=== PATIENT | female | born 1985 | race Caucasian/White ===

== ENCOUNTER 2024-07-03 21:08 | Inpatient (IN) | payer OTHER, SELFPAY ==
[2024-07-03] VITALS (7 sets, daily range): BP systolic 155–196; BP diastolic 105–135; BMI 13.2; BMI 12.7
--- NOTE | 2024-07-03 18:19 | ED.GENMED ---
History of Present Illness
<IFRAH De La Cruz - Last Filed: 07/03/24 19:52>
General
Chief Complaint: Dizziness
Source: patient
Exam Limitations: none
Time Seen by Provider: 07/03/24 17:57
History of Present Illness
History of Present Illness:
This is a 39 year old female that comes in with c/o dizziness and frequent falls. states that two weeks ago she had a fall with her dogs. States that since then she has been dizzy and having trouble with her balance. States that she has been
falling a lot and she did move home with Parents due to the falls. States that she also started with diarrhea today and she has lost weight. Today she went to the PCP and was sent in as he was concerned about her electrolytes. States that her
appetite has been decreased. States that she has abd cramping, nausea, and had chills. Denies any fever, chest pain, SOB, vomiting, headache, dizziness, urinary burning.
Past History
<IFRAH De La Cruz - Last Filed: 07/03/24 19:52>
Past History
ED Past Medical History: Psychiatric (Anxiety, eating disorder but patient will not admit to) and Other (raynaud's Syndrome, ADHD, )
ED Past Surgical History: Orthopedic (Jaw surgery, )
Social History
Tobacco: Non-smoker
Alcohol: None
Personal: Single
Living: with family (Parents)
Review of Systems
<IFRAH De La Cruz - Last Filed: 07/03/24 19:52>
Review of Systems
All Other Systems: ROS reviewed and negative except as documented in HPI and ROS
Constitutional: Reports chills; Denies fever
EENT: Reports no symptoms
Respiratory: Reports no symptoms; Denies cough or trouble breathing
Cardiac: Reports no symptoms; Denies chest pain
ABD/GI: Reports abdominal pain (cramping), nausea and diarrhea; Denies vomiting
: Reports no symptoms; Denies dysuria, frequency or urgency
Musculoskeletal: Reports no symptoms
Skin: Reports no symptoms
Neurological: Reports dizzy; Denies headache
Psychiatric: Reports no symptoms
Phy Exam
<IFRAH De La Cruz - Last Filed: 07/03/24 19:52>
General Physical Exam
General Presentation: no apparent distress
General age: appears stated age
General Skin: warm and dry
General Habitus: cachetic and frail
General Mental: alert
General Hydration: appears well hydrated
ENT Exam
ENT Exam: TM's normal, pharynx normal and neck supple
Eye Exam
Eye Exam: EOMI
Cardiovascular Exam
Cardiovascular Exam: regular rate/rhythm and normal peripheral pulses
Pulmonary Exam
Pulmonary Exam: no respiratory distress, no rales, chest non tender, no crackles, no rhonchi, no wheezing, no cough and decreased breath sounds (throughtout)
Gastrointestinal Exam
Gastrointestinal Exam: normal bowel sounds, non tender, soft, no organomegaly, no pulsatile mass and non distended
Musculoskeletal Exam
Musculoskeletal Exam: edema (+2 pitting edema of the lower legs)
Skin Exam
Skin Exam: normal color, warm/dry, no petechia, mottled (Finger due to Raynaud's) and other (Contusion of the right forehead, left upper arm, healing wounds bilateral knees. both hand and feet skin peeling )
Psychiatric Exam
Psychiatric Exam: normal mood/affect
Course
<IFRAH De La Cruz - Last Filed: 07/03/24 19:52>
Orders/Labs/Results
Orders:
Orders
07/03/24 18:18
CT Head W/o Iv Contrast Urgent
Comment:
Reason For Exam: dizziness, frequent falls
07/03/24 18:19
0.9% Sodium Chloride 1000 ml [Nss] 1,000 ml IV BOLUS
07/03/24 18:[address] Non Medication Order As Directed
Physician Order: rectal temp
07/03/24 18:34
Electrocardiogram (*1) Urgent
Reason for Study: Abdominal Pain
EKG- Treatment ONCE
07/03/24 18:38
Complete Blood Count/With Diff Urgent
Comprehensive Metabolic Panel Urgent
Magnesium Urgent
07/03/24 18:[address] Non Medication Order As Directed
Physician Order: Bear hugger
07/03/24 19:07
Labetalol HCl [Trandate] 10 mg IV NOW STA
Abnormal Lab Results
07/03/24
18:38
RBC 3.75 L 10^6/uL
(4.20-5.40)
Hct 35.0 L %
(37.0-47.0)
MCH 33.3 H pg
(27.0-31.0)
MPV 10.7 H fL
(7.4-10.4)
Absolute Lymphs (auto) 0.5 L 10^3/uL
(1.2-3.4)
Neutrophils % 84.0 H %
(42.2-75.2)
Lymphocytes % 8.1 L %
(20.5-51.1)
Chloride 92 L mmol/L
(98-107)
Carbon Dioxide 34 H mmol/L
(22-30)
BUN 49 H mg/dl
(7-17)
Glucose 101 H mg/dl
(70-99)
AST 216 H U/L
(14-36)
ALT 175 H U/L
(0-35)
Alkaline Phosphatase 142 H U/L
(38-126)
07/03/24 18:38
07/03/24 18:38
Chloride low, carbon dioxide elevation. Dehydration. Glucose nonfasting. AST/ALT elevation. Alk phos elevation.
Vital Signs
Initial and Last Documented VS:
Initial Vital Signs
Pulse Resp BP Pulse Ox
74 16 194/124 100
07/03/24 17:46 07/03/24 17:46 07/03/24 17:46 07/03/24 17:46
Last Documented Vital Signs
Temp Pulse Resp BP Pulse Ox
93.8 F L 69 13 179/127 100
07/03/24 19:48 07/03/24 19:09 07/03/24 19:00 07/03/24 19:09 07/03/24 19:00
<Roger Tee, DO - Last Filed: 07/03/24 18:37>
Orders/Labs/Results
Orders:
Orders
07/03/24 18:18
CT Head W/o Iv Contrast Urgent
Comment:
Reason For Exam: dizziness, frequent falls
07/03/24 18:19
0.9% Sodium Chloride 1000 ml [Nss] 1,000 ml IV BOLUS
07/03/24 18:[address] Non Medication Order As Directed
Physician Order: rectal temp
07/03/24 18:34
Electrocardiogram (*1) Urgent
Reason for Study: Abdominal Pain
EKG- Treatment ONCE
07/03/24 18:38
Complete Blood Count/With Diff Urgent
Comprehensive Metabolic Panel Urgent
Magnesium Urgent
07/03/24 18:[address] Non Medication Order As Directed
Physician Order: Bear hugger
07/03/24 19:07
Labetalol HCl [Trandate] 10 mg IV NOW STA
Abnormal Lab Results
07/03/24
18:38
RBC 3.75 L 10^6/uL
(4.20-5.40)
Hct 35.0 L %
(37.0-47.0)
MCH 33.3 H pg
(27.0-31.0)
MPV 10.7 H fL
(7.4-10.4)
Absolute Lymphs (auto) 0.5 L 10^3/uL
(1.2-3.4)
Neutrophils % 84.0 H %
(42.2-75.2)
Lymphocytes % 8.1 L %
(20.5-51.1)
Chloride 92 L mmol/L
(98-107)
Carbon Dioxide 34 H mmol/L
(22-30)
BUN 49 H mg/dl
(7-17)
Glucose 101 H mg/dl
(70-99)
AST 216 H U/L
(14-36)
ALT 175 H U/L
(0-35)
Alkaline Phosphatase 142 H U/L
(38-126)
07/03/24 18:38
07/03/24 18:38
Vital Signs
Initial and Last Documented VS:
Initial Vital Signs
Pulse Resp BP Pulse Ox
74 16 194/124 100
07/03/24 17:46 07/03/24 17:46 07/03/24 17:46 07/03/24 17:46
Last Documented Vital Signs
Temp Pulse Resp BP Pulse Ox
93.8 F L 69 13 179/127 100
07/03/24 19:48 07/03/24 19:09 07/03/24 19:00 07/03/24 19:09 07/03/24 19:00
Marquislt;IFRAH De La Cruz - Last Filed: 07/03/24 19:52>
MDM/Problems Addressed
Differential Diagnosis Includes:
Electrolyte imbalance, failure to thrive
MDM/Problems Addressed:
This is a 39 year old female that comes in with c/o dizziness. States that this started 2 weeks ago after a fall with her dogs. States that she has been having trouble with her balance since that time.
will get labs, CT head, give IV fluids.
Into see parents. Mom states that she has hospitalized about a year ago as her electrolytes were abnormal. States that she does have an eating disorder. Expained that she will be admitted. Temp at that this time 93.[address] the bear
Hugger.
Chronic conditions affecting care:
Eating disorder,
Acute Exacerbation and/or Progression of Chronic Illness:
eating disorder,
<IFRAH De La Cruz - Last Filed: 07/03/24 19:52>
*Radiology
Radiology exam reviewed: radiology read reviewed (CT head-No CT evidence for acute intracranial hemorrhage or transcortical infarct. Mild diffuse cerebral and cerebellar volume loss. Diffuse anasarca)
*Pulse Oximetry
Patient hypoxic: no
*EKG
Interpreted by ED Provider?: Yes
Heart Rate: 56
Rate: bradycardiac
Rhythm: sinus
Lima: normal axis
Interval: long QT
QRS Pattern: normal QRS
Ischemia: no ischemia (Checked by Dr. Tee)
*Critical Care Note
Total Time (30-74mins, 75-104mins- exclusive of procedures): Not Applicable
ED Attending Note
<IFRAH De La Cruz - Last Filed: 07/03/24 19:52>
-
Portions of this chart may have been created with voice recognition software.� Occasional wrong word or��sound alike� substitutions may have occurred due to the inherent limitations of voice recognition software.
<Roger Tee DO - Last Filed: 07/03/24 18:37>
ED Attending Note
Patient seen and examined by attending physician: Yes
I performed the substantive portion of visit, reviewed & personally made and approve the management plan that is documented in note by myself or STEPHANIE.: Yes
ED Attending Note:
I have seen and evaluated the patient with a [id number] encounter. I have spoken to the advance practicer provider and involved in the medical history, the physical exam, medical decision making.
Evaluation and management service: agree unless noted differently below.
Results interpretation: agree unless noted differently below.
Focused HPI: 39-year-old female presenting for evaluation of weakness, fatigue and diarrhea. Patient states this has progressed over the past day or so.
Physical exam: Extremely cachectic, frail, weak.
Medical Decision Making: Patient has evidence to suspect eating disorder. She likely has significant amount of Electrolyte abnormalities. Will give fluids and obtain blood work and ultimately
Discharge Plan
Departure
Patient Disposition: Admit
Date of Disposition: 07/03/24
Time of Disposition: 19:28
Admit to: IMU
Presentation/result/management discussed w/ accepting MD/DO: Hospitalist
Patient with high blood pressure during this ER visit?: Yes
Condition: Fair
Covid-19: Not Applicable
Discharge Problem:
Hypothermia, Elevated liver enzymes, Dizziness, Frequent falls, Acute Hypertension
Prescriptions:
No Action
Theragen Tablet
1 tab PO DAILY
calcium carbonate [Tums] 200 mg calcium (500 mg) Tablet,Chewable
400 mg PO DAILYPRN PRN (Reason: take with advil)
losartan 25 mg Tablet
25 mg PO HS
ibuprofen [Advil] 200 mg Tablet
400 mg PO Q8HPRN PRN (Reason: mild pain)
furosemide 20 mg Tablet
20 mg PO DAILY
dextroamphetamine-amphetamine [Adderall XR] 30 mg Capsule,Extended Release 24hr
30 mg PO QPM
diazepam 5 mg Tablet
5 mg PO TID
fish oil-dha-epa 1,200-144-216 mg Capsule
1 cap PO QID
dextroamphetamine-amphetamine [Mydayis] 50 mg Capsule, Er Triphasic 24 Hr
50 mg PO DAILY
turmeric 400 mg Capsule
400 mg PO QPM
Interventions
Interventions:
*Risk Screen - Suicide Last Done: 07/03/24 17:46
*Neglect/Abuse Screening Last Done: 07/03/24 17:46
Discharge Date and Time
Print Language: GAMBIAN
[2024-07-03 18:56] LABS: % Basophils 0.3 % (0-2); % Immature Granulocytes 0.3 % (0-0.5); % Lymphocytes 8.1 % (20.5-51.1); % Monocytes 4.3 % (1.7-9.3); Absolute Eosinophils 0.2 10^3/uL (0-0.7); Absolute Lymphocytes 0.5 10^3/uL (1.2-3.4); Absolute Monocytes 0.3 10^3/uL (0.1-0.6); Absolute Neutrophils 5.3 10^3/uL (1.4-6.5); Hemoglobin 12.5 g/dL (12.0-16.0); Mean Corp Hgb Conc. 35.7 g/dL (33.0-37.0); Mean Corpuscular Hgb 33.3 pg (27.0-31.0); Mean Corpuscular Volume 93.3 fL (81.0-99.0); Mean Platelet Volume 10.7 fL (7.4-10.4); Nucleated Red Blood Cells % 0 %; Platelet Count 130 10^3/uL (130-400); Red Blood Cell Count 3.75 10^6/uL (4.20-5.40); White Blood Cell Count 6.3 10^3/uL (4.8-10.8)
[2024-07-03 19:04] LABS: ALT (SGPT) 175 U/L (0-35); AST (SGOT) 216 U/L (14-36); Albumin 4.5 g/dl (3.5-5.0); Alkaline Phosphatase 142 U/L (38-126); Blood Urea Nitrogen 49 mg/dl (7-17); Calcium 9.5 mg/dl (8.4-10.2); Carbon Dioxide 34 mmol/L (22-30); Chloride 92 mmol/L (98-107); Glucose 101 mg/dl (70-99); Magnesium 1.9 mg/dl (1.6-2.3); Potassium 4.1 mmol/L (3.5-5.1); Sodium 135 mmol/L (135-145); Total Bilirubin 0.6 mg/dl (0.2-1.3); Total Protein 6.7 g/dl (6.3-8.2); eGFR > 60.00
[2024-07-03] MEDS: NSS 1000 IV (19:08)
[2024-07-03] MEDS: TRANDATE 10 MG IV (19:09)
--- NOTE | 2024-07-03 20:51 | HPS.HSE ---
Family Physician
-
Family Physician: Mary Zhang
Chief Complaint
-
Dizziness and frequent falls.
History of Present Illness
39-year-old female who has a past medical history of ADHD, anxiety brought to family after PMD visit for evaluation of frequent falls.
According to family who provided large percent of the history patient has a history of eating disorder. She apparently had bulimic symptoms for years ago but currently severely anorexic. She has been living with family for several years now and
she was last optimized with severe malnutrition about a year ago at [facility]. At the time she had no extremity edema that was attributed to able to malnutrition. She had no known liver disease. She denies any alcohol use. Patient
herself reports that she is having surgery was on liquid diet for a while but now is on solid diet. She follows at outpatient rehab for ADHD. Is not clear that she has been followed for severe eating disorder. Patient reports chronic low
temperatures at baseline. He does not know whether she has been evaluated for hypothyroid. She denies any urinary symptoms abdominal pain nausea or vomiting. She denies current diarrhea. Family notes that stools. They deny constipation. They
denied any rash. Patient reports dizziness worse with standing. She has ambulatory difficulties secondary to weakness. Seen by PMD who sent her to ED.
In the emergency department the patient was hypothermic to 93.8, blood pressure was measured at 160/100 and she was satting 100% on room air. CBC was unremarkable. Chemistries were only notable for a bicarb of 34. LFTs showed normal bilirubin
with some mild transaminitis.
Medical History
Past Medical History
Past Medical History: Reports HTN and Psychiatric (Anxiety)
Additional Past Medical History:
ADHD
Eating D/O
Past Surgical History: Reports Other
Additional Past Surgical History:
General surgery
Social History
Tobacco: Non-smoker
Alcohol: None
Drug: None
Personal: Single
Living: With Family
Employment: Not Employed
Family History
Family History: Not pertinent
Allergies / Home Medications
Allergies reflects when Allergies were last updated in [facility].
Home Medications with original date entered in [facility]
Allergy/Medication List:
Allergies
Allergy/AdvReac Type Severity Reaction Status Date / Time
acetaminophen [From Tylenol] Allergy Intermediate Vomiting Verified 07/03/24 17:46
aspirin Allergy Intermediate Vomiting Verified 07/03/24 17:46
codeine Allergy Intermediate Unknown Verified 07/03/24 17:46
black pepper Allergy Mild Swelling Verified 07/03/24 17:45
Penicillins Allergy Mild Hives Verified 07/03/24 17:45
Home Medications
calcium carbonate (Tums) 400 mg PO DAILYPRN PRN take with advil 07/03/24
dextroamphetamine-amphetamine ER 30 mg 24hr capsule,extend release (Adderall XR) 30 mg PO QPM 07/03/24
dextroamphetamine-amphetamine ER 50 mg capsule,3 bead,ext release 24hr (Mydayis) 50 mg PO DAILY 07/03/24
diazepam 5 mg tablet 5 mg PO TID 07/03/24
fish oil-dha-epa 1,200 mg-144 mg-216 mg capsule 1 cap PO QID 07/03/24
furosemide 20 mg tablet 20 mg PO DAILY 07/03/24
ibuprofen 200 mg tablet (Advil) 400 mg PO Q8HPRN PRN mild pain 07/03/24
losartan 25 mg tablet 25 mg PO HS 07/03/24
therapeutic multivitamin 1 tab PO DAILY 07/03/24
turmeric 400 mg capsule 400 mg PO QPM 07/03/24
Review of Systems
-
History Source: Patient
Constitutional: Reports Weight Loss and Fatigue
EENT: Reports No Symptoms
Respiratory: Reports No Symptoms
Cardiac: Reports No Symptoms
Abdomen/GI: Reports No Symptoms
: Reports No Symptoms
Musculoskeletal: Reports No Symptoms
Skin: Reports No Symptoms
Neurological: Reports Weakness
Endocrine: Reports Temp Intolerance (hypothermia)
Hematologic/Lymphatic: Reports No Symptoms
Psych: Reports No Symptoms
Physical Exam
Vital Signs
Vital Signs
Temp Pulse Resp BP Pulse Ox
93.8 F L 67 21 164/114 100
07/03/24 19:48 07/03/24 19:45 07/03/24 19:45 07/03/24 19:30 07/03/24 19:30
Physical Exam
General: Cachectic
HEENT: NormoCephalic, Anicteric, PERRLA and Neck Nontender
Respiratory: Clear
Cardiac: S1/S2 and Bradycardia
Breast: Deferred by me
GI: Soft, Non Tender and Normal Bowel Sounds
Rectal: Deferred by Provider
Genito-urinary: Deferred by me
Musculoskeletal: No Clubbing, No Cyanosis, Edema, Left Lower Extremity and Edema, Right Lower Extremity
Skin: Warm
Neuro: AO x 3
Hematologic/Lymphatic: No Lymphadenopathy
Psych: Calm
Laboratory Results
-
07/03/24 18:38
07/03/24 18:38
Laboratory Results
Total Bilirubin 0.6 mg/dl (0.2-1.3) 07/03/24 18:38
AST 216 U/L (14-36) H 07/03/24 18:38
ALT 175 U/L (0-35) H 07/03/24 18:38
Alkaline Phosphatase 142 U/L (38-126) H 07/03/24 18:38
Data Reviewed
-
Lab Data: Labs Reviewed by me
Old Records: Reviewed
Impression/Plan
-
IMPRESSION:
39 y.o with dizziness found to be hypothermic here. No obvious signs of infection. History of eating d/o, underweight with ongoing weight loss
PLAN:
1. Hypothermia - No signs of active infection. Lungs clear. No abdominal symptoms. No urinary symptoms. Head Ct negative.
- admit to med/surg
- warming measures
- check cortisol and tsh
- u/a
- covid
-
2. Malnutrition - She is underweight, elevated bicarb suggestive of GI losses and contraction alkalosis. Labs otherwise unremarkable. History of malnutrition/anorexia. She is severely ill from this now
- despite BP will start d5 thiamine/folate/mvi
- check levels of ca, mag, phos, b12, folate, pre-albumin to assess nutritional status
- will need behavioral consult
- orthostatic vs
3. Hypertension
- continue losartan for now
- holding lasix (used for edema, no h/o CHF)
4. ADHD
- continue adderal and mydayis per home regimen
- reduced diazepam to 5 daily and prn, monitor for withdrawal
DVT PPX - lovenox 30 sq
Code status - full code
[2024-07-03 21:44] LABS: COVID-19 Antigen Negative (Negative)
[2024-07-03 21:55] LABS: TSH Reflex To Free T4 6.33 uIU/ml (0.47-4.68)
[2024-07-03] MEDS: COZAAR 25 MG PO (23:43)
[2024-07-03] MEDS: MULTIVITAMIN 1011.2 MG IV ×2 (23:48)
[2024-07-03] MEDS: MULTIVITAMIN 1011.2 ML IV (23:48)
[2024-07-03] MEDS: VALIUM 2 MG PO (23:48)
[2024-07-04 06:30] VITALS: BP 146/90
[2024-07-04 06:43] LABS: INR 0.98; PT 13.5 Sec (11.4-14.6)
[2024-07-04 06:44] LABS: APTT 31.8 Sec (23.4-35.0)
[2024-07-04 07:00] LABS: NT-proBNP 1100 pg/ml
[2024-07-04 07:24] LABS: Blood Urea Nitrogen 31 mg/dl (7-17); Calcium 8.4 mg/dl (8.4-10.2); Carbon Dioxide 33 mmol/L (22-30); Chloride 97 mmol/L (98-107); Creatine Phosphokinase 270 U/L (30-135); Estimated Creatinine Clearance 68 ml/min; Glucose 80 mg/dl (70-99); HDL Cholesterol 100 mg/dl; Iron 83 ug/dl (37-170); LDL Cholesterol, Calculated 24 mg/dl; Lipase 773 U/L (23-300); Magnesium 1.7 mg/dl (1.6-2.3); Phosphorus 1.6 mg/dl (2.5-4.5); Potassium 3.5 mmol/L (3.5-5.1); Sodium 135 mmol/L (135-145); Total Cholesterol 131 mg/dl (50-199); Triglyceride 38 mg/dl (10-149); Very Low Density Lipoprotein 7 mg/dl (0-30); eGFR > 60.00
[2024-07-04 07:25] LABS: Hematocrit 27.3 % (37.0-47.0); Hemoglobin 9.7 g/dL (12.0-16.0); Mean Corp Hgb Conc. 35.5 g/dL (33.0-37.0); Mean Corpuscular Hgb 33.7 pg (27.0-31.0); Mean Corpuscular Volume 94.8 fL (81.0-99.0); Mean Platelet Volume 10.4 fL (7.4-10.4); Platelet Count 101 10^3/uL (130-400); Red Blood Cell Count 2.88 10^6/uL (4.20-5.40); Red Cell Dist. Width 13.2 % (11.5-14.5); White Blood Cell Count 3.4 10^3/uL (4.8-10.8)
--- NOTE | 2024-07-04 07:28 | PTCARENOTE ---
Pt w/ bloody nose w/ a few clots. Pressure held and pt's head forward. Cold compress held to nose. Pt stated she usually gets nose bleeds this time of year but 'this is the worst one' shes had. CNC MILLING MACHINIST notified, instructed to cont to monitor. Pt placed
gauze in nose and is holding pressure. Plan of care ongoing.
[2024-07-04 07:30] LABS: Urine Albumin Negative (Neg - Trace); Urine Bilirubin Negative (Negative); Urine Character Clear (Clear); Urine Color Yellow; Urine Glucose Negative (Negative); Urine Ketone Negative (Negative); Urine Leukocyte Negative (Negative); Urine Nitrite Negative (Negative); Urine Occult Blood Negative (Negative); Urine Urobilinogen Negative (Neg - 1+)
[2024-07-04 07:34] LABS: Percent Saturation 31 % (20-50); Total Iron Binding Capacity 265 ug/dl (265-497)
[2024-07-04 07:46] LABS: Amphetamines Positive (Negative); Barbiturates Negative (Negative); Benzodiazepines Positive (Negative); Buprenorphine Negative (Negative); Cocaine Negative (Negative); Marijuana Negative (Negative); Methadone Negative (Negative); Methamphetamines Negative (Negative); Opiates Negative (Negative); Phencyclidine Negative (Negative); Tricyclic Antidepressants Negative (Negative)
[2024-07-04 07:56] LABS: Cortisol, Random 26.2 ug/dl
[2024-07-04 08:01] LABS: Fentanyl, Urine Negative (Negative)
[2024-07-04 08:14] LABS: Vitamin B12 > 1000 pg/ml (239-931)
[2024-07-04] MEDS: THERAGRAN 1 TABLET PO (08:21)
--- NOTE | 2024-07-04 10:12 | W.PN.HOSP.TC ---
Today's Communication/Plan
-
See plan
Assessment / Plan
Assessment / Plan
Impression:
Presentation with multiple falls and dizziness
Suspect multifactorial ambulatory dysfunction (orthostasis, benzodiazepine effect, overall deconditioning)
Eating disorder, severe with severe cachexia BMI of 12
Hypoalbuminemia secondary to above
Contraction alkalosis
Hypokalemia
Hypomagnesemia
Hypothermia
Pancytopenia
Subclinical hypothyroidism
Peripheral edema with elevated natruretic peptide
Prolonged QTc
Hypertension likely secondary to amphetamine toxicity
Abnormal LFT
Benzodiazepine use disorder.
Stimulant use disorder/amphetamine.
Plan:
Presentation with frequent falls and ambulatory dysfunction.
Multifactorial due to overall deconditioning, suspect benzodiazepines toxicity.
Neurologic exam with no focal findings.
CT scan of the head with no acute abnormalities.
Adjust medication regimen including benzodiazepines.
Physical therapy evaluation.
Severe eating disorder with cachexia and severe protein calorie malnutrition with BMI of 12.
Dehydration with contraction alkalosis.
Hypokalemia, hypomagnesemia all related to the above.
Psychiatry consultation.
Continue IV hydration replete electrolytes.
Nutrition consult
Consider initiation of supplements
Amphetamine and benzodiazepine use disorder.
Patient reports total dose of amphetamine over 80 mg a day, exceeding limits.
Reduce dose Adderall to 15 mg IR twice daily.
Reduce dose of diazepam to 2 mg 3 times daily
Pending psychiatry input and outpatient medication reconciliation
Cardiovascular
Hypotension suspected secondary to amphetamine toxicity
Peripheral edema with elevated natruretic peptide. Could be multifactorial and secondary to amphetamine toxicity as well as severe malnutrition and hypoproteinemia.
Prolonged QTc
Echocardiogram
Replete electrolytes
Follow EKG with QTc monitoring
Cardiac monitoring
Continue losartan
Hold Lasix
Abnormal LFTs with elevated transaminases.
Ultrasound of the abdomen
Avoid hepatotoxic medications
Adjust benzodiazepine dose
Follow LFT.
Hypothermia.
No clinical evidence of infection.
TSH mildly elevated with normal free T4 suggesting subclinical hypothyroidism.
Sinus bradycardia likely baseline
Will monitor closely holding Levothyroid supplementation. Close TFT follow-up as outpatient
Pancytopenia likely related to severe malnutrition
Follow CBC.
Normocytic anemia become apparent with dilution.
Sufficient iron and B12 stores.
Full code
Anticipated Discharge: 24 - 48 hours
Subjective/Interval History
-
Date of Service: July 04, 2024
Objective Data
-
Labs:
Laboratory Results
07/04/24
06:13
WBC 3.4 L
Hgb 9.7 L D
Hct 27.3 L
Plt Count 101 L D
PT 13.5
INR 0.98
APTT 31.8
Sodium 135
Potassium 3.5
Chloride 97 L
Carbon Dioxide 33 H
BUN 31 H
Creatinine 0.5 L
Glucose 80
Calcium 8.4
Vital Signs:
Vital Signs
Temp Pulse Resp BP Pulse Ox
94.0 F L 60 18 146/90 99
07/04/24 08:33 07/04/24 06:30 07/04/24 06:30 07/04/24 06:30 07/04/24 06:30
I&O
07/03/24 07/04/24 07/05/24
06:59 06:59 06:59
Intake Total 480 / 480
Output Total 600 / 600
Balance -120 / -120
Physical Exam
-
General: No Apparent Distress, Appears Chronically Ill and Cachectic
HEENT: Other (Right forehead/periorbital ecchymosis)
Respiratory: Clear to Auscultation
Cardiac: Regular Rhythm and S1/S2; Negative Murmur
Musculoskeletal: Other (Bilateral lower extremity edema)
Neuro: Awake, Alert, Oriented and AO x 3
Psych: Calm and Other (Impaired judgment)
[2024-07-04] MEDS: VALIUM 2 MG PO ×3 (12:51→21:03)
[2024-07-04] MEDS: ADDERALL 15 MG PO (12:51)
[2024-07-04] MEDS: MULTIVITAMIN IV ×3 (13:04)
[2024-07-04 14:18] VITALS: BMI 12.7
--- NOTE | 2024-07-04 14:48 | CM ---
Reviewed chart, met with patient to obtain information for assessment. Patient's mother was at bedside. Patient stated that she lives with her mom and dad in a two story home with one step to enter. She described herself as independent with her
ADLs, personal care, bathing and dressing. Her parents assist with thinner sprayer. They drive patient to her appointments and do all the shopping.
Patient denied any DME at home.
She has never had VN services.
She has a prescription plan and uses [facility] for all of her medications.
Patient's PCP is, Mary Zhang.
Plan: Case management will continue to follow and assist with discharge planning. Home when stable.
[2024-07-04] MEDS: KCL 1012 GRAMS IV (16:15)
[2024-07-04] MEDS: KCL 1012 MEQ IV (16:15)
--- NOTE | 2024-07-04 16:20 | CON.MD ---
Consultation - Medical
-
39 yr old F presenting with multiple falls w/ dizziness in context of severe anorexic eating disorder (BMI 12). Pt with extensive metabolic disturbances due to malnutrition - Hypoalbuminemia, Contraction alkalosis, Hypokalemia, Hypomagnesemia,
Hypothermia, Pancytopenia, elevated LFTs. Also with peripheral edema w/ elevated natriuretic peptide. On admission pt reported being prescribed Mydyais and Adderall for ADHD and it seems pt was resistant to stimulant being discontinued, despite
medical admission being due to sequelae of anorexia.
Pt seen & evaluated at bedside - is notably focused on stimulant medication. Reports that she is completely unable to function without her ADHD medication - says she cannot get any work done without it. Attempted to discuss risks and concerns of
stimulant prescription given significantly low BMI due to anorexia. Also attempted to highlight that pt was quite unwell physically and hospitalized, which is likely much more disruptive to her work than not taking stimulant while being medically
stabilized. Pt was not receptive to this however, and continued to say that the Mydyais and Adderall make her hungry and help her to eat - 'that's the only thing that helps me eat'. Again attempted to discuss with pt how unlikely this was, as well
as to highlight how much of a risk stimulants posed in her condition, but pt was not receptive still.
Was difficult to obtain hx as pt is quite significantly deconditioned and fatigued - increased speech latency, at times trailing off weakly, visible effort to respond due to physical fatigue from the exertion. Also difficult to obtain history
because pt often led back to needing stimulant , regardless of nature of questioned posed.
Pt is often evasive when asked about eating disorder, will not provide detail about history pertaining to this. She does acknowledge that she attends a mental health IOP (not for anorexia) and has a pricing lead there to help with intake, as well as
that says she has been eating 'much better' because when she takes stimulant she is able to create a schedule that allows her to eat more. However difficult to obtain any further information. When asked how it is it possible that stimulant helps
her eat if she is at a BMI of 12, pt blames this on a dog bite over the summer (had to be on liquid diet b/c of pain in face per her report). Then says that just as she started eating more again, started feeling unwell/nauseaous and weak, which
prevented her from eating. To note, her reasoning is often inconsistent and difficult for me to truly make sense of.
Denies inpatient hx. Reports starting an IOP a few weeks ago for 'neurodivergent people'. Also says she has a psychiatrist for many years, Dr. Ovidio Garcia (in [facility]) who prescribes her Mydyais, Adderall, and Valium (see below for detaills).
As per PDMP:
06/12 Adderall XR 30mg + Mydayis 50mg
05/15-05/17 Adderall XR 30mg + Mydayis 100mg (50mg rx on 05/17 and 05/16)
04/16 Adderall XR 30mg + Mydayis 50mg + Mydayis 30mg
Also: 05/13 diazepam 5mg #120 tablets + 04/01 diazepam 5mg #120 tablets + 02/16 diazepam 5mg #120 tablets
Anorexia nervosa, severe
Prescription amphetamine abuse
Possibly benzo misuse
MSE: calm, minimally cooperative,speech is minimal, slow and quiet,mood is stressed, affect is blunted and fatigued, thought process is preoccupied with taking stimulant, thought content: denies SI/HI/AVH/delusions. AAOx3. Memory not formally
tested. Insight poor. Judgement poor
Discontinue Adderall - BMI is 12 and stimulant is known to significantly decrease appetite. It is unfortunately not uncommon for me to hear this from patients suffering with anorexia as it is often a way to further decrease intake and increase
weight loss. She is experiencing multiple metabolic disturbances and notable extremity swelling due to severity of food restrictrition and at this time a stimulant is much more of a risk than it could provide in benefit. Pt is aware of this.
Continue diazepam 2mg TID, would gradually taper down every few days as she appears sedated
Will try to speak with pts outpt psychiatrist
Will need eating disorder treatment though she does not appear agreeable to this currently, will continue to encourage
[2024-07-04 16:28] VITALS: BP 203/135
[2024-07-04] MEDS: CATAPRES 0.1 MG PO (16:38)
--- NOTE | 2024-07-04 16:47 | PTCARENOTE ---
blood pressure 203/135, hypothermic temp 94.5- pt put on bear hugger. Dr jeffrey notified of vitals, order received for catapres now. pt reports being very anxious about not getting her Adderall.
[2024-07-04] MEDS: APRESOLINE 10 MG IV (18:06)
[2024-07-04 19:31] VITALS: BP 122/78; BP 133/93
[2024-07-04] MEDS: CATAPRES PO (21:06)
[2024-07-04] MEDS: COZAAR 25 MG PO (21:18)
[2024-07-04 23:09] VITALS: BP 154/104
[2024-07-05 03:53] VITALS: BP 149/97
[2024-07-05 05:46] VITALS: BMI 13.5
[2024-07-05 06:40] LABS: % Basophils 0.2 % (0-2); % Eosinophils 0.4 % (0-6); % Immature Granulocytes 0.2 % (0-0.5); % Lymphocytes 20.7 % (20.5-51.1); % Monocytes 4.1 % (1.7-9.3); % Neutrophils 74.4 % (42.2-75.2); Absolute Monocytes 0.2 10^3/uL (0.1-0.6); Absolute Neutrophils 3.6 10^3/uL (1.4-6.5); Hemoglobin 10.7 g/dL (12.0-16.0); Mean Corp Hgb Conc. 34.5 g/dL (33.0-37.0); Mean Corpuscular Hgb 32.9 pg (27.0-31.0); Mean Corpuscular Volume 95.4 fL (81.0-99.0); Nucleated Red Blood Cells % 0 %; Red Blood Cell Count 3.25 10^6/uL (4.20-5.40); Red Cell Dist. Width 13.2 % (11.5-14.5); White Blood Cell Count 4.9 10^3/uL (4.8-10.8)
[2024-07-05 07:30] VITALS: BP 161/110
[2024-07-05 07:47] LABS: ALT (SGPT) 118 U/L (0-35); AST (SGOT) 124 U/L (14-36); Albumin 3.3 g/dl (3.5-5.0); Alkaline Phosphatase 126 U/L (38-126); Blood Urea Nitrogen 16 mg/dl (7-17); Calcium 8.6 mg/dl (8.4-10.2); Carbon Dioxide 29 mmol/L (22-30); Chloride 94 mmol/L (98-107); Estimated Creatinine Clearance 73 ml/min; Glucose 109 mg/dl (70-99); Sodium 130 mmol/L (135-145); Total Bilirubin 0.2 mg/dl (0.2-1.3); Total Protein 5.5 g/dl (6.3-8.2); eGFR > 60.00
[2024-07-05] MEDS: THERAGRAN 1 TABLET PO (07:54)
[2024-07-05] MEDS: VALIUM 2 MG PO ×2 (07:54→15:06)
[2024-07-05] MEDS: CATAPRES 0.1 MG PO ×2 (07:54→15:07)
[2024-07-05 08:00] VITALS: BP 160/110
[2024-07-05 11:28] VITALS: BP 160/105
--- NOTE | 2024-07-05 14:27 | W.DS.TRANS ---
DC Summary - [facility]
-
Discharge Instructions:
Discharge Diagnosis/Procedures Impression:
Presentation with multiple falls and dizziness
Suspect multifactorial ambulatory dysfunction (
orthostasis, benzodiazepine effect, overall
deconditioning)
Eating disorder, severe with severe cachexia BMI
of 12
Hypoalbuminemia secondary to above
Contraction alkalosis
Hypokalemia
Hypomagnesemia
Hypothermia
Pancytopenia
Subclinical hypothyroidism
Peripheral edema with elevated natruretic
peptide
Prolonged QTc
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
toxicity
Abnormal LFT
Benzodiazepine use disorder.
Stimulant use disorder/amphetamine.
Diet Regular
Blood Work TSH in 3-4 weeks
Instructions:
Stand-Alone Forms:
Changes to Home Medications: Yes
Discharge Medications:
DC Medications w/original date entered in [facility]
calcium carbonate (Tums) 400 mg PO DAILYPRN PRN take with advil 07/03/24
fish oil-dha-epa 1,200 mg-144 mg-216 mg capsule 1 cap PO QID Supplement 07/03/24
therapeutic multivitamin 1 tab PO DAILY Supplement 07/03/24
turmeric 400 mg capsule 400 mg PO QPM Supplement 07/03/24
clonidine HCl 0.1 mg tablet 0.1 mg PO TID #90 tabs 07/05/24
diazepam 2 mg tablet 2 mg PO TID #60 tabs 07/05/24
losartan 50 mg tablet 50 mg PO HS #30 tabs 07/05/24
Home Medication Changes
Adderall discontinued
Lasix discontinued
Diazepam dose reduced
Pending Results: No
[2024-07-05 14:59] LABS: Mean Platelet Volume 10.9 fL (7.4-10.4); Platelet Count 99 10^3/uL (130-400)
[2024-07-05] MEDS: COZAAR 50 MG PO (15:07)
--- NOTE | 2024-07-05 15:12 | PN.CDI ---
CDI
- -
CDI:
Physician Documentation Request
Admit Date: 07/03/24 21:08
Dear Doctor Des,
Clinical Indicators:
Patient admitted with multiple falls and dizziness.
07/05 PN, 'Hypertension likely secondary to amphetamine toxicity'
PRN medications given: -Labetalol 10mg IV x 1
-Clonidine 0.1mg po x 2 doses.
BP trend:
07/03/24
17:46 07/03/24
18:50 07/03/24
19:09
Blood pressure 194/124 192/134 179/127
07/04/24
16:28 07/04/24
18:06
Blood pressure 203/135 180/120
Please clarify which, if any of the following, is a more accurate diagnosis reflecting the type and acuity of the documented hypertension:
Hypertensive Urgency - B/P is severely elevated (systolic > or = to 180 or diastolic > or = to 110) but there is no associated organ damage. Symptoms may include: headache, shortness of breath, nosebleeds, severe anxiety. Treatment usually consists
of addition to or adjusting of oral medications and does not generally necessitate hospitalization.
Hypertension only
Other (please specify)
Use of terms such as suspected, likely, concern for, or probable (associated with a specific diagnosis that is being evaluated, monitored, or treated as if it exists) are acceptable and can be coded in the inpatient setting, when documented at the
time of discharge.
Thank you,
Tess Mo RN BSN
CDI Specialist
available via tiger text
Please use your independent medical judgment in providing your response.
== END 2024-07-05 15:43 | DRG 917 ==
LOC: 3 WEST ACU 21:08
PROVIDERS: Clinical Nurse Specialist Family Health; ADMITTING PHYSICIAN Internal Medicine; ATTENDING PHYSICIAN Internal Medicine; CONSULT PHYSICIAN Psychiatry & Neurology Psychiatry; EMERGENCY PHYSICIAN Student in an Organized Health Care Education/Training Program; FAMILY PHYSICIAN Internal Medicine
DX: T42.4X1A Poisoning by benzodiazepines, accidental (unintentional), initial encounter (principal); E43 Unspecified severe protein-calorie malnutrition; R64 Cachexia; Z68.1 Body mass index [BMI] 19.9 or less, adult; E87.3 Alkalosis; D61.818 Other pancytopenia; F50.9 Eating disorder, unspecified; E88.09 Other disorders of plasma-protein metabolism, not elsewhere classified; E87.6 Hypokalemia; E83.42 Hypomagnesemia; R68.0 Hypothermia, not associated with low environmental temperature; E03.8 Other specified hypothyroidism; I11.0 Hypertensive heart disease with heart failure; I50.9 Heart failure, unspecified; F13.10 Sedative, hypnotic or anxiolytic abuse, uncomplicated; F15.10 Other stimulant abuse, uncomplicated; I95.1 Orthostatic hypotension; F90.9 Attention-deficit hyperactivity disorder, unspecified type; I16.0 Hypertensive urgency
CPT/HCPCS: 70450; 76700; 80048; 80053; 80061; 80306; 80307; 81003; 82533; 82550; 82607; 83540; 83550; 83690; 83735; 83880; 84100; 84134; 84439; 84443; 85025; 85027; 85610; 85730; 87070; 87811; 93005; 93306; 96361; 96374; 97162; 99285; J7030